=== PATIENT | female | born 1995 | race Caucasian/White ===

== ENCOUNTER 2016-11-20 08:53 | Emergency (ER) | payer BC ==
[~2016-11-20] VITALS: Ht 162.6 cm; Wt 66.0 kg
[2016-11-20 08:59] VITALS: TEMP 37; Ht 162.6 cm; Wt 66.0 kg
[2016-11-20] MEDS ORDERED: CRY28 PO (09:25)
--- NOTE | 2016-11-20 09:44 | DIAGNOSTIC IMAGING REPORT ---
RIGHT ANKLE 3 VIEWS HISTORY: R ankle pain/swelling Right COMPARISON: None. FINDINGS: There is no fracture or dislocation. Lateral soft tissue swelling. No radiopaque foreign bodies. IMPRESSION: No fractures. Electronically signed by: Kaushal Donovan M.D. 11/20/2016 9:42 AM Dictated Date/Time: 11/20/2016 9:42 AM
[2016-11-20 10:10] VITALS: BP 121/79; PULSE 83; O2SAT 100
--- NOTE | 2016-11-20 16:35 | EMERGENCY ROOM VISIT NOTE ---
ED Visit Note First contact with patient: 09:00 Chief complaint: Right ankle pain. HPI: This 21-year-old white female presents to the emergency room for evaluation of her right ankle. The patient injured the ankle last night when she jumped over a small fence. She landed awkwardly and inverted her ankle. She was drinking at the time. Since that time, they have had persistent pain over the medial and lateral portion of the ankle. They deny any numbness or tingling. Pain is worse with weight-bearing. They have been walking with a limp. no knee or hip pain. No pop or snap with injury. Treatment has consisted of ice provided in the ER. No prior history of significant ankle injury. Pain is 6/10. REVIEW OF SYSTEM: HEENT: No dizziness, visual problems, hearing loss, tinnitus. There is no difficulty swallowing and no oral lesions are present. PULMONARY: No cough, shortness of breath, sputum production or hemoptysis. CARDIOVASCULAR: No chest pain, palpitations, shortness of breath or peripheral edema. GASTROINTESTINAL: No diarrhea, constipation, nausea, vomiting, or abdominal pain. GENITOURINARY: No dysuria, frequency, urgency or nocturia. NEUROLOGIC: No weakness, muscle tenderness, epilepsy or history of neurological problems. MUSCULOSKELETAL: No history of joint tenderness/swelling. No history of arthritis or arthralgias. SKIN: No rashes or lesions. PSYCHIATRIC: No history of depression or mental illness. ENDOCRINE: No history of diabetes, thyroid disorders, abnormal hair growth. PAST MEDICAL HISTORY: Supplemental sheet was reviewed and signed. Previous surgeries: None Medical history: Benign Current medications: Oral contraceptive Allergies: NKDA Family history: Noncontributory Social history: [employer] student. Single. Positive EtOH use. PHYSICAL EXAM: Vitals: Temp 37.0 pulse 110 BP 124/82 respirations 18 General: Well-developed, well-nourished, young white female, in obvious discomfort. No acute distress. She is sitting in a wheelchair. Alert and oriented. Skin:Warm and dry with good turgor. No rashes or lesions. No erythema. The patient is not diaphoretic. No abrasions. Edema is present both medially and laterally at the ankle. Musculoskeletal: Right ankle evaluation reveals no pain with palpation across the knee or proximal tibia or fibula. There is pain with palpation over the lateral malleolus and the lateral ligaments. There is also pain over the medial malleolus and deltoid ligament. Achilles' tendon is palpated to its entirety and found to be intact and without defect. Normal Sebastian test. No pain with palpation of the calcaneus, fifth metatarsal base, midfoot, forefoot, or toes. Motor function to the toes is intact and unremarkable. Motor function to the ankle is intact but range of motion is limited by pain. Strength is 5/5 for resisted motion. Positive anterior drawer, negative calcaneal tilt. Neurologic: Gross sensation is intact across all aspects of the foot and ankle via soft touch. Peripheral pulses are 2+. Data: Radiographic images of the ankle were obtained today and were reviewed by me as well as radiology. They are unremarkable for fracture or other bony abnormality. IMPRESSION: Right ankle sprain. PLAN: The patient was educated regarding today's findings. Conservative care measures were discussed. Patient was given an Ankle gel splint and will be used for support for the next 3 weeks. It may be removed for bathing and sleep. It should be used for a few additional weeks for sporting events only. Crutches were fitted and crutch instruction was reviewed. Discontinue crutch use when they are able to walk without a limp. Weight-bear as tolerable. Gentle motion daily. Ice and elevate intermittently over the next 3 days, after which she may switch to moist heat. Lower leg should be elevated at night during sleep. Tylenol and ibuprofen every 6 hours as needed for discomfort. Sprain handout was provided. Return to the ER for any acute changes. Follow-up with her PCP or orthopedist if not improving in 7 days. Current/Historical Medications Scheduled Ethinyl Estradiol/Norgestrel ([id number]), 1 TAB PO DAILY Allergies Coded Allergies: No Known Allergies (Unverified , 11/20/16) Vital Signs Date Time Temp Pulse Resp B/P Pulse Ox O2 Delivery O2 Flow Rate FiO2 11/20/16 10:10 83 16 121/79 100 11/20/16 08:59 37.0 110 18 124/82 98 Room Air Departure Information Impression Primary Impression: Right ankle sprain Dispostion Home / Self-Care Condition GOOD Referrals [facility] Services Forms HOME CARE DOCUMENTATION FORM, MOTRIN USE, TYLENOL USE, IMPORTANT VISIT INFORMATION Patient Instructions [facility] Additional Instructions Use crutches until you can walk without a limp- weight-bear as tolerable Ice and elevate intermittently x3 days, and then use moist heat Tylenol and ibuprofen every 6 hours as needed for pain Gentle motion daily See your PCP or orthopedist if not improving over 7 days Use gel splint at all times other than bathing and sleep for 4 weeks, and then use it for an additional 2 weeks for any sporting activity
== END 2016-11-20 10:10 | disposition home or self-care (01) ==
LOC: C.EDB 08:55 → C.EDA 10:10
DX: S93.401A Sprain of unspecified ligament of right ankle, initial encounter (principal); X50.1XXA Overexertion from prolonged static or awkward postures, initial encounter

== ENCOUNTER 2017-05-27 00:34 | Emergency (ER) | payer BC, OTHER ==
[~2017-05-27 00:34] MED LIST: CRY28 PO
[2017-05-27 01:24] LABS: BLOOD UREA NITROGEN 12 mg/dl (7-18); BUN/CREATININE RATIO 16.8 (10-20); CALCIUM 8.6 mg/dl (8.5-10.1); CARBON DIOXIDE 23 mmol/L (21-32); CHLORIDE 106 mmol/L (98-107); CREATININE 0.71 mg/dl (0.60-1.20); GLUCOSE 127 mg/dl (70-99); POTASSIUM 3.3 mmol/L (3.5-5.1); SODIUM 138 mmol/L (136-145)
[2017-05-27 04:20] VITALS: TEMP 37
--- NOTE | 2017-05-27 05:58 | DIAGNOSTIC IMAGING REPORT ---
HEAD WITHOUT CONTRAST (CT) CLINICAL HISTORY: 21 years-old Female with eval for trauma. TECHNIQUE: Multiple axial CT images of the head were obtained without contrast. A dose lowering technique was utilized adhering to the principles of ALARA. CT DOSE: 1041.38 mGy.cm COMPARISON: None. FINDINGS: No acute intracranial hemorrhage, midline shift, mass, large territorial ischemia or abnormal extra-axial collection. The calvarium is intact. The mastoid air cells, and middle ear cavities are clear. Mild mucosal thickening of the ethmoid and maxillary sinuses. Soft tissues are unremarkable. Orbits are symmetric. IMPRESSION: No acute intracranial abnormality. The above report was generated using voice recognition software. It may contain grammatical, syntax or spelling errors. Electronically signed by: Víctor Dickinson M.D. 05/27/2017 5:57 AM Dictated Date/Time: 05/27/2017 5:54 AM
--- NOTE | 2017-05-27 06:07 | DIAGNOSTIC IMAGING REPORT ---
CERVICAL SPINE W/O CLINICAL HISTORY: 21 years-old Female presenting with eval for trauma, unresponsive, alcohol overdose. TECHNIQUE: Multidetector CT of the cervical spine was performed without the use of intravenous contrast. IV contrast: None. A dose lowering technique was used consistent with the principles of ALARA (as low as reasonably achievable). COMPARISON: None. CT DOSE (mGy.cm): The estimated cumulative dose is 1041.38. FINDINGS: Clean Up Person topogram: Unremarkable. Reversal of normal cervical lordosis, possibly positional. Apparent rotatory subluxation of C1 relative to C2. However, the occipital condyles maintain good contact with the lateral masses of C1, and similarly the lateral masses of C1 maintain good contact with the lateral masses of C2. No acute fracture or subluxation. Skull base intact. No degenerative change. No osseous narrowing of the neural foramina or spinal canal. Paraspinal soft tissues within normal limits, although numerous prominent bilaterally symmetric cervical lymph nodes are noted, likely reactive. Lung apices clear. IMPRESSION: 1. No acute osseous injury of the cervical spine. Rotatory subluxation of C1 relative to C2 and cervical kyphosis likely positional. 2. Prominent cervical lymph nodes likely reactive. Electronically signed by: Jose Pacheco M.D. 05/27/2017 6:05 AM Dictated Date/Time: 05/27/2017 6:00 AM
--- NOTE | 2017-05-27 06:37 | EMERGENCY ROOM VISIT NOTE ---
History Report prepared by [place]: Jessica Fernando Under the Supervision of: Dr. Alyssa Zaamrripa D.O. 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 She presents to the ED by EMS. The patient was in the bathroom. The fire department had to break down the door. She was found in the shower unresponsive. She had vomited. Her blood sugar was 126 in route. The history is limited due to the patient's AMS. Source of History: EMS History Limited By: AMS Onset: DANCING MASTER Position: other (global) Quality: other (alcohol intoxication) Timing: other (persistent) Associated Symptoms: + vomiting Review of Systems Unobtainable due to the patient's AMS. Past Medical & Surgical Unobtainable as the patient was significantly intoxicated. Family History Unobtainable due to patient's AMS. Social History Occupation Status: [employer] student Current/Historical Medications Unable to Obtain Active Prescriptions or Reported Meds Physical Exam Vital Signs Date Time Temp Pulse Resp B/P (MAP) Pulse Ox O2 Delivery O2 Flow Rate FiO2 05/27/17 06:00 75 18 95/38 97 Room Air 05/27/17 05:08 77 05/27/17 05:00 80 14 100/48 99 Room Air 05/27/17 04:20 37.0 91 16 105/53 97 Room Air 05/27/17 03:00 93 14 104/47 95 Room Air 05/27/17 02:42 91 21 93 05/27/17 02:31 109/53 05/27/17 02:12 93 18 96 05/27/17 02:01 104/60 05/27/17 01:42 79 17 96 05/27/17 01:32 105/93 05/27/17 01:20 34.9 67 15 96/70 96 Room Air 05/27/17 01:18 96/70 05/27/17 01:12 76 16 98 05/27/17 01:07 57 15 89/53 97 Room Air 05/27/17 01:01 61 14 84/53 97 Room Air 05/27/17 00:52 66 05/27/17 00:43 35.3 61 20 90/68 98 Room Air 05/27/17 00:43 35.3 61 20 90/68 98 Room Air Physical Exam General: Unresponsive, flexed arms somewhat concerning for posturing HEENT: Head - normocephalic and atraumatic Pupils are 9mm and very sluggishly reactive to light. Extraocular eye muscles are intact, and sclera are anicteric. Nose - moist nasal mucosa without discharge. Mouth - moist buccal mucosa. Oropharynx is nonerythematous and there is no tonsillar exudate or edema noted. Neck: Supple; no JVD, nuchal rigidity, cervical lymphadenopathy. Heart: Regular rate and rhythm. There is a normal S1 and S2 with no murmurs, clicks, or gallops appreciated. Lungs: Clear to auscultation bilaterally with no wheezes, rales, or rhonchi. Abdomen: Soft, completely nontender, nondistended, with good bowel sounds. There are no palpable pulsatile masses or hepatosplenomegaly. There is no guarding, rigidity, or rebound noted. Extremities: No evidence of cyanosis, clubbing, or edema. There are easily palpable peripheral pulses. Skin: warm and dry with good turgor and no rashes. Medical Decision & Procedures ER Provider Diagnostic Interpretation: Radiology results as stated below per my review and the [facility] radiologist's interpretation: CT Head: No evidence of acute infarct, hemorrhage, mass, or edema. No acute calvarial abnormality. Minimal mucosal thickening in the paranasal sinuses. CT C spine: No evidence of acute fracture or traumatic malalignment. Reversal of the normal cervical lordosis, likely positional. Laboratory Results 05/27/17 00:44 Test 05/27/17 00:44 Anion Gap 9.0 mmol/L (3-11) Estimated GFR () 142.1 Estimated GFR (Non- 122.6 BUN/Creatinine Ratio 16.8 (10-20) Calcium Level 8.6 mg/dl (8.5-10.1) Ethyl Alcohol mg/dL 279.0 mg/dl (0-3) Laboratory results per my review. ED Course 0034: The patient was evaluated in room B3B. A complete history and physical examination were performed. Nursing notes and previous electronic medical records were reviewed. Labs are drawn as above. The patient will go for CT scan of the brain and cervical spine 0115: The patient had an episode of bradycardia down into the 30s during vomiting. She will be going to CT now. 0253: I spoke with someone from [facility]. I updated her on the situation. The patient was hypothermic. 0255: I reevaluated the patient. She has the Sugey Hugger on. She is hemodynamically stable. 0429: I reevaluated the patient. Her temperature has gone up so the Sugey Hugger was removed. She is sleeping and her vitals are stable. 0616: I reevaluated the patient. She is still sound asleep. Her vitals are stable. 0650: The patient woke up easily for me. I reviewed the results of the labs and CT scans with her. She has no recollection of the evening other than drinking at an apartment. She did not remember being in her dormitory shower. She will sober up some more and then be discharged to campus. She was encouraged to avoid such excessive alcohol use in the future. Medical Decision The patient is a 21 year old female who presents to the ED with alcohol intoxication. Differential diagnosis includes alcohol overdose, drug intoxication, head injury, hypoglycemia. Labs: alcohol 279, normal renal function, glucose 127. The patient was brought to the emergency department after being found unresponsive in vomit in her dormitory bathroom. She's not of alcohol. She was observed here in the emergency department after labs were drawn. She remained hemodynamically stable while she sobered up. The patient was noted be hypothermic and had a sugey hugger placed. Impression Primary Impression: Alcohol overdose Additional Impression: Hypothermia Scribe Attestation The scribe's documentation has been prepared under my direction and personally reviewed by me in its entirety. I confirm that the note above accurately reflects all work, treatment, procedures, and medical decision making performed by me. Departure Information Dispostion Home / Self-Care Prescriptions Unable to Obtain Active Prescriptions or Reported Meds Forms HOME CARE DOCUMENTATION FORM, IMPORTANT VISIT INFORMATION Patient Instructions ED Overdose Alcohol, [facility]: [employer] Students and Alcohol Related Visits, My [facility] Additional Instructions Rest. Take plenty of clear liquids and a bland diet Avoid such excessive alcohol use in the future. Take tylenol for headache Problem Qualifiers Primary Impression: Alcohol overdose Encounter type: initial encounter Injury intent: accidental or unintentional Qualified Codes: T51.91XA - Toxic effect of unspecified alcohol , accidental (unintentional), initial encounter Additional Impression: Hypothermia Encounter type: initial encounter Qualified Codes: T68.XXXA - Hypothermia, initial encounter
[2017-05-27 07:31] VITALS: BP 100/50; PULSE 80; O2SAT 98
== END 2017-05-27 07:32 | disposition home or self-care (01) ==
LOC: EDBD 00:34 → MERGE 00:35 → EDBD 00:35 → C.EDB 00:35
DX: T51.91XA Toxic effect of unspecified alcohol, accidental (unintentional), initial encounter (principal); T68.XXXA Hypothermia, initial encounter; Y90.8 Blood alcohol level of 240 mg/100 ml or more